=== PATIENT | male | born 1965 ===

== ENCOUNTER 2020-08-08 15:07 | Emergency (ER) | payer OTHER ==
--- NOTE | 2020-08-08 17:04 | Event Note ---
ED Screening Note Date of service: 08/08/20 Time: 17:03 ED Screening Note: Patient sent here from clinic for hypoxia and cough O2 sat here in ED 90% This initial assessment/diagnostic orders/clinical plan/treatment(s) is/are subject to change based on patients health status, clinical progression and re- assessment by fellow clinical providers in the ED. Further treatment and workup at subsequent clinical providers discretion. Patient/guardian urged not to elope from the ED as their condition may be serious if not clinically assessed and managed. Initial orders include: Labs Chest x-ray
[2020-08-08 17:09] VITALS: BP 131/88
[2020-08-08 17:32] LABS: Basophils % (Auto) 0.1 % (0.0-1.8); Eosinophils % (Auto) 0.2 % (0.0-4.3); Hematocrit 48.3 % (35.5-45.6); Hemoglobin 16.5 gm/dl (11.8-15.2); Lymphocytes # (Auto) 1.6 K/mm3 (1.2-5.4); Lymphocytes % (Auto) 21.6 % (13.4-35.0); Mean Corpuscular HGB Conc 34 % (32-34); Mean Corpuscular Volume 85 fl (84-94); Monocytes % (Auto) 14.4 % (0.0-7.3); Platelet Count 267 K/mm3 (140-440); Red Blood Count 5.68 M/mm3 (3.65-5.03); Red Cell Distribution Width 13.5 % (13.2-15.2)
[2020-08-08 17:55] LABS: Alanine Aminotransferase 36 units/L (7-56); Albumin 4.3 g/dL (3.9-5); Hemolysis Index 2
[2020-08-08 18:00] LABS: BUN/Creatinine Ratio 14; Blood Urea Nitrogen 10 mg/dL (9-20)
--- NOTE | 2020-08-08 18:13 | XRay Report ---
CHEST 2 VIEWS INDICATION / CLINICAL INFORMATION: cough, hypoxia. COMPARISON: None available. FINDINGS: SUPPORT DEVICES: None. HEART / MEDIASTINUM: No significant abnormality. LUNGS / PLEURA: Subtle, mild patchy pulmonary opacities. No significant effusion. No pneumothorax. ADDITIONAL FINDINGS: No significant additional findings. IMPRESSION: 1. Subtle, mild patchy pulmonary opacities. Findings could represent early pneumonia. Signer Name: Rojelio Goodwin MD Signed: 08/08/2020 6:08 PM Workstation Name: [id number]
[2020-08-08] MEDS ORDERED: AZITHROMYCIN 250 MG TAB PO ONE (19:42)
[2020-08-08] MEDS ORDERED: IPRATROPIUM/ALBUTEROL SULFATE 3 ML AMPUL.NEB IH ONE (19:42)
[2020-08-08] MEDS ORDERED: methylPREDNISolone Sod Succinate 125 MG/2 ML INJ IM ONE (19:42)
[2020-08-08] MEDS ORDERED: LIDOCAINE-MPF (1%) 10 MG/1 ML VIAL 5 ML INFILTRATI ONE (19:43)
--- NOTE | 2020-08-08 19:48 | Emergency Department Report ---
- General Chief Complaint: Upper Respiratory Infection Stated Complaint: COUGH Time Seen by Provider: 08/08/20 17:02 Source: patient Mode of arrival: Ambulatory Limitations: Language Barrier - History of Present Illness Initial Comments: Patient is a 55-year-old male with no past medical history presents to the ED with complaint of acute onset persistent nasal and sinus congestion, persistent dry cough with shortness of breath and wheezing for the last 8 days. Patient states that no one else at home has had similar symptoms. Patient states that he has been taking fjqc-ztt-[id number] medications with no relief. Patient states that in the last 24 hours the cough has been persistent as well as shortness of breath. Patient denies chest pain, dizziness, syncope, fever, chills, nausea, vomiting, abdominal pain, diarrhea, loss of taste or smell, testicular pain, dysuria, urinary frequency and urgency, palpitations or hemoptysis. MD Complaint: cough, rhinorrhea, nasal congestion -: Sudden, days(s) (8) Severity: severe Severity scale (0 -10): 7 Quality: other (Chest tightness) Consistency: constant Improves With: nothing Worsens With: nothing Associated Symptoms: denies other symptoms, rhinorrhea, nasal congestion, cough. denies: fever, chills, diaphoresis, headache, chest pain, shortness of breath, abdominal pain, nausea, vomiting, diarrhea, dysuria, rash, confusion, right sweats, weight loss, epistaxis, hoarseness, ear pain Treatments Prior to Arrival: "cold medicine" - Related Data Previous Rx's Medication Instructions Recorded Last Taken Type Albuterol Sulfate [Proventil Hfa] 1 - 2 puff IH Q6H PRN #1 hfa.aer.ad 08/08/20 Unknown Rx Azithromycin [Zithromax Z-HOSEA] 250 mg PO DAILY #6 tablet 08/08/20 Unknown Rx Benzonatate [Tessalon Perles] 100 mg PO Q8HR #30 capsule 08/08/20 Unknown Rx Cetirizine HCl [Zyrtec 10mg tab] 10 mg PO DAILY #30 tablet 08/08/20 Unknown Rx methylPREDNISolone [Medrol 4MG 4 mg PO DAILY #21 tab.ds.pk 08/08/20 Unknown Rx DOSEPAK (21 tabs)] ED Review of Systems ROS: Stated complaint: COUGH Other details as noted in HPI Constitutional: denies: chills, fever Eyes: denies: eye pain, eye discharge, vision change ENT: congestion. denies: ear pain, throat pain Respiratory: cough, shortness of breath, wheezing Cardiovascular: denies: chest pain, palpitations Endocrine: no symptoms reported Gastrointestinal: denies: abdominal pain, nausea, vomiting, diarrhea Genitourinary: denies: urgency, dysuria Musculoskeletal: denies: back pain, joint swelling, arthralgia Skin: denies: rash, lesions Neurological: denies: headache, weakness, paresthesias Psychiatric: denies: anxiety, depression Hematological/Lymphatic: denies: easy bleeding, easy bruising ED Past Medical Hx - Medications Home Medications: Home Medications Medication Instructions Recorded Confirmed Last Taken Type Albuterol Sulfate [Proventil Hfa] 1 - 2 puff IH Q6H PRN #1 hfa.aer.ad 08/08/20 Unknown Rx Azithromycin [Zithromax Z-HOSEA] 250 mg PO DAILY #6 tablet 08/08/20 Unknown Rx Benzonatate [Tessalon Perles] 100 mg PO Q8HR #30 capsule 08/08/20 Unknown Rx Cetirizine HCl [Zyrtec 10mg tab] 10 mg PO DAILY #30 tablet 08/08/20 Unknown Rx methylPREDNISolone [Medrol 4MG 4 mg PO DAILY #21 tab.ds.pk 08/08/20 Unknown Rx DOSEPAK (21 tabs)] ED Physical Exam - General Limitations: Language Barrier General appearance: alert, in no apparent distress - Head Head exam: Present: atraumatic, normocephalic, normal inspection - Eye Eye exam: Present: normal appearance, PERRL, EOMI Pupils: Present: normal accommodation - ENT ENT exam: Present: normal orophraynx, mucous membranes moist, TM's normal bilaterally, normal external ear exam, other (Grossly congested nasal passages) - Neck Neck exam: Present: normal inspection, full ROM - Respiratory Respiratory exam: Present: wheezes (Mildly diffuse coarse wheezes throughout). Absent: respiratory distress, rales, rhonchi, chest wall tenderness, accessory muscle use, other - Cardiovascular Cardiovascular Exam: Present: normal rhythm, tachycardia, normal heart sounds. Absent: systolic murmur, diastolic murmur, rubs, gallop - GI/Abdominal GI/Abdominal exam: Present: soft, normal bowel sounds. Absent: distended, tenderness, guarding, hyperactive bowel sounds, hypoactive bowel sounds, organomegaly - Extremities Exam Extremities exam: Present: normal inspection, full ROM, normal capillary refill - Back Exam Back exam: Present: normal inspection, full ROM. Absent: tenderness, CVA tenderness (R), muscle spasm, paraspinal tenderness, vertebral tenderness - Neurological Exam Neurological exam: Present: alert, oriented X3, CN II-XII intact, normal gait, reflexes normal - Psychiatric Psychiatric exam: Present: normal affect, normal mood - Skin Skin exam: Present: warm, dry, intact, normal color. Absent: rash ED Course Vital Signs 08/08/20 17:03 Temperature 99.5 F Pulse Rate 106 H Respiratory 20 Rate Blood Pressure 131/88 O2 Sat by Pulse 91 Oximetry ED Medical Decision Making - Lab Data Result diagrams: 08/08/20 17:05 08/08/20 17:05 - Radiology Data Radiology results: report reviewed, [place] [id number] XRay Report Signed Patient: RUSSELL SALDANA MR#: [id number] : 1965 Acct:[id number] Age/Sex: 55 / M ADM Date: 08/08/20 Loc: ED Attending Dr: Ordering Physician: EAGLE CARNES Date of Service: 08/08/20 Procedure(s): XR chest routine 2V Accession Number(s): [id number] cc: EAGLE CARNES Fluoro Time In Minutes: CHEST 2 VIEWS INDICATION / CLINICAL INFORMATION: cough, hypoxia. COMPARISON: None available. FINDINGS: SUPPORT DEVICES: None. HEART / MEDIASTINUM: No significant abnormality. LUNGS / PLEURA: Subtle, mild patchy pulmonary opacities. No significant effusion. No pneumothorax. ADDITIONAL FINDINGS: No significant additional findings. IMPRESSION: 1. Subtle, mild patchy pulmonary opacities. Findings could represent early pneumonia. Signer Name: Sanam Goodwin MD Signed: 08/08/2020 6:08 PM Workstation Name: [id number] Transcribed By: Dictated By: SANAM GOODWIN III Electronically Authenticated By: SANAM GOODWIN III Signed Date/Time: 08/08/201807 DD/ 06 TD/TT: - Medical Decision Making This is a 55-year-old male with no past medical history presents to the ED with complaint of acute onset persistent nasal and sinus congestion, persistent dry cough with shortness of breath and wheezing for the last 8 days. Patient states that no one else at home has had similar symptoms. Patient states that he has been taking rolm-jaw-svmrzgh medications with no relief. In the ED, patient is alert and oriented x3 and is not in any distress. Patient was initially afebrile and tachycardic in triage, with oxygen saturation of 91% in room air. Patient was walked around in the ED and oxygen saturation improved to 94% in room air. Patient was treated in the ED with DuoNeb and Solu-Medrol. Chest x-ray showed subtle, mild patchy pulmonary opacities. Findings could represent early pneumonia. Lab test results were reviewed and are all nonactionable. On reevaluation, patient's oxygen saturation improved to 95 to 96% in room air. Patient was treated in the ED with Rocephin 1 g intramuscular injection as well as azithromycin 500 mg p.o. x1. Patient will discharge home on medications and advised to self quarantine at home for 10 days for suspected COVID-19 viral infection, however was also encouraged to go for outpatient COVID-19 viral diagnostic test to ascertain his diagnosis. Patient was advised return to the ED immediately if symptoms get worse, otherwise follow-up with his primary care physician after his self quarantine. - Differential Diagnosis Pneumonia; URI; Bronchitis; Viral syndrome; Covid-19 Critical care attestation.: If time is entered above; I have spent that time in minutes in the direct care of this critically ill patient, excluding procedure time. ED Disposition Clinical Impression: Acute upper respiratory infection, Suspected severe acute respiratory syndrome coronavirus 2 (SARS-CoV-2) infection Community acquired pneumonia Qualifiers: Laterality: unspecified laterality Qualified Code(s): J18.9 - Pneumonia, unspec ified organism Disposition: DC-01 TO HOME OR SELFCARE Is pt being admited?: No Does the pt Need Aspirin: No Condition: Stable Instructions: Upper Respiratory Infection, Adult, [id number]-[id number], Community- Acquired Pneumonia, Adult, Obfp-fi-[id number], Bacterial Pneumonia (ED) Additional Instructions: Auto cuarentena shalini 10 pettit por sospecha de infeccin viral COVID-19. Es aconsejable acudir a las clnicas para pacientes ambulatorios para hacerse ivory prueba de infeccin viral COVID-19 para determinar si tiene la infeccin viral COVID-19 o no. De lo contrario, tome los medicamentos segn lo recomendado, danyel muchos lquidos y jerome un seguimiento con boyd mdico de atencin primaria despus de 10 pettit para ivory reevaluacin. Regrese al servicio de urgencias inmediatamente si los sntomas empeoran. Prescriptions: methylPREDNISolone [Medrol 4MG DOSEPAK (21 tabs)] 4 mg PO DAILY #21 tab.ds.pk Albuterol Sulfate [Proventil Hfa] 1 - 2 puff IH Q6H PRN #1 hfa.aer.ad PRN Reason: Dyspnea Benzonatate [Tessalon Perles] 100 mg PO Q8HR #30 capsule Azithromycin [Zithromax Z-HOSEA] 250 mg PO DAILY #6 tablet Cetirizine HCl [Zyrtec 10mg tab] 10 mg PO DAILY #30 tablet Referrals: [facility] [Provider Group] - 7-10 days Time of Disposition: 19:52 Print Language: ESTONIAN
== END 2020-08-08 20:52 | disposition home or self-care (01) ==
LOC: ED 15:07
DX: J06.9 Acute upper respiratory infection, unspecified (principal); J18.9 Pneumonia, unspecified organism; Z20.828 Contact with and (suspected) exposure to other viral communicable diseases; Z79.899 Other long term (current) drug therapy
CPT/HCPCS: 36415; 71046; 80053; 83880; 84484; 85025; 96372; 99284; J0696; J2930